=== PATIENT | male | born 1995 | race American Indian/Alaskan Native ===

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

== ENCOUNTER 2017-12-10 15:38 | Emergency (ER) | payer MEDICAID, OTHER ==
[2017-12-10] MEDS ORDERED: Sodium Chloride 0.9% 1,000 ML IV STA (16:02)
--- NOTE | 2017-12-10 16:14 | ED PDOC ---
HPI: Abdomen Time Seen by Provider: 12/10/17 15:55 Chief Complaint (Nursing): Abdominal Pain Chief Complaint (Provider): abdominal pain History Per: Patient History/Exam Limitations: no limitations Exacerbating Factors: None Alleviating Factors: None Last Bowel Movement: Today Additional Complaint(s): 22yo male c/o abdominal discomfort since this morning, crampy, upper abdomen associated w nausea and one episode vomiting with specks of blood in it. Denies melena, weakness, syncope, or diarrhea. Prior records reveal several ED visits for same, states he saw a GI doctor in [place] within last month but he doesnt recall the name- states he dropped off a stool sample and told everything was ok, taking no medications daily. Denies drug or alcohol use recently. Denies weight loss, rash, cough or chest pain. Past Medical History Reviewed: Historical Data, Nursing Documentation, Vital Signs Vital Signs: Last Vital Signs Temp 98 F 12/10/17 19:03 Pulse 70 12/10/17 19:03 Resp 20 12/10/17 19:03 BP 120/70 12/10/17 19:03 Pulse Ox 98 12/10/17 19:03 - Medical History PMH: No Chronic Diseases - Surgical History Surgical History: No Surg Hx - Family History Family History: States: Unknown Family Hx - Social History Current smoker - smoking cessation education provided: No Drugs: Denies - Immunization History Hx Tetanus Toxoid Vaccination: No Hx Influenza Vaccination: No Hx Pneumococcal Vaccination: No - Home Medications Home Medications: Ambulatory Orders Medication Instructions Recorded Famotidine [Pepcid] 20 mg PO HS #30 tab 11/10/17 Ranitidine HCl [Zantac] 150 mg PO BID #30 tablet 12/10/17 - Allergies Allergies/Adverse Reactions: Allergies Allergy/AdvReac Type Severity Reaction Status Date / Time No Known Allergies Allergy Verified 11/10/17 21:31 Review of Systems ROS Statement: Except As Marked, All Systems Reviewed And Found Negative Constitutional: Negative for: Fever, Chills, Weight loss Respiratory: Negative for: Cough Gastrointestinal: Positive for: Nausea, Vomiting, Abdominal Pain, Hematemesis. Negative for: Diarrhea, Constipation, Melena, Hematochezia, Rectal Pain Genitourinary Male: Negative for: Dysuria Musculoskeletal: Negative for: Neck Pain, Back Pain Skin: Negative for: Rash, Lesions, Jaundice Neurological: Negative for: Weakness, Confusion, Seizures, Dizziness Psych: Negative for: Depression Physical Exam - Reviewed Nursing Documentation Reviewed: Yes Vital Signs Reviewed: Yes - Physical Exam Appears: Positive for: Well, Non-toxic, No Acute Distress Head Exam: Positive for: ATRAUMATIC, NORMAL INSPECTION, NORMOCEPHALIC Skin: Positive for: Normal Color, Warm, DRY Eye Exam: Positive for: EOMI, Normal appearance, PERRL ENT: Positive for: Normal ENT Inspection Neck: Positive for: Normal, Painless ROM Cardiovascular/Chest: Positive for: Regular Rate, Rhythm Respiratory: Positive for: Normal Breath Sounds, Other (tattoos to chest) Gastrointestinal/Abdominal: Positive for: Soft. Negative for: Tenderness Back: Positive for: Normal Inspection Extremity: Positive for: Normal ROM Neurologic/Psych: Positive for: Alert, Oriented. Negative for: Motor/Sensory Deficits - Laboratory Results Result Diagrams: 12/10/17 16:05 12/10/17 16:05 - ECG O2 Sat by Pulse Oximetry: 99 Medical Decision Making Medical Decision Making: prior charts reviewed, Rx pepcid but patient not taking. Prior admitted to frequent marijuana use but today denies. Will check bloodwork and US abdomen given no imaging yet. labs and US report reviewed improved on re-eval in ED, abdomen was nontender. Given recurrence of symptoms needs to see GI, explained to patient and family member. Disposition - Clinical Impression Clinical Impression: Abdominal pain - Patient ED Disposition Is Patient to be Admitted: No - Disposition Referrals: Patricio Mata MD, PhD [Staff Provider] - Disposition: Routine/Home Disposition Time: 18:55 Condition: STABLE Additional Instructions: Followup with GI doctor for definitive care. Return to ER for any further vomiting of blood, dark/tarry stools, pain, fever, weakness or any concern. Take medications as directed. Prescriptions: Ranitidine HCl [Zantac] 150 mg PO BID #30 tablet Instructions: Gastrointestinal Bleeding, Acute Abdomen (Belly Pain), Adult (DC) , Stomach Ache and Stomach Upset Forms: [employer] (Ecuadorean), [facility] ED School/Work Excuse
[2017-12-10 16:23] LABS: BASO % 0.4 % (0.0-2.0); EOS # 0.1 K/uL (0.0-0.7); EOS % 1.4 % (0.0-4.0); HEMOGLOBIN 14.7 g/dL (12.0-18.0); LYMPH # 2.4 K/uL (1.0-4.3); LYMPH % 48.2 % (20.0-40.0); MEAN CELL VOLUME 77.4 fl (80.0-94.0); MEAN CORPUSCULAR HEMOGLOBIN 26.3 pg (27.0-31.0); MEAN PLATELET VOLUME 8.2 fl (7.2-11.7); MONO # 0.7 K/uL (0.0-0.8); MONO % 14.8 % (0.0-10.0); NEUT # 1.7 K/uL (1.8-7.0); NEUT % 35.2 % (50.0-75.0); NRBC % 0.1 % (0.0-0.0); RBC 5.6 Mil/uL (4.40-5.90); WHITE BLOOD COUNT 4.9 K/uL (4.8-10.8)
[2017-12-10 16:31] LABS: ALB/GLOB RATIO 1.2 (1.0-2.1); ALT/SGPT 38 U/L (21-72); AST/SGOT 34 U/L (17-59); BLOOD UREA NITROGEN 16 mg/dl (9-20); CALCIUM 8.9 mg/dL (8.4-10.2); GFR AFRICAN-AMERICAN > 60; GFR NON-AFRICAN AMERICAN > 60; LIPASE 78 U/L (23-300)
[2017-12-10 16:39] LABS: BARBITURATES, UR NEGATIVE (NEGATIVE); BENZODIAZEPINES, UR NEGATIVE (NEGATIVE); OPIATES, UR NEGATIVE (NEGATIVE); PHENCYCLIDINE, UR NEGATIVE (NEGATIVE)
[2017-12-10 17:41] LABS: SQUAMOUS EPITHIAL < 1 /hpf (0-5); URINE BACTERIA RARE (<OCC); URINE BILIRUBIN NEGATIVE (NEGATIVE); URINE BLOOD NEGATIVE (NEGATIVE); URINE CLARITY SLIGHTY-CLOUDY (Clear); URINE COLOR YELLOW (YELLOW); URINE GLUCOSE (UA) NEG (Normal); URINE LEUKOCYTE ESTERASE NEG Leu/uL (Negative); URINE PROTEIN 30 mg/dL (NEGATIVE)
--- NOTE | 2017-12-10 17:50 | US ---
HISTORY: upper abdominal pain; GB/Aorta/pancreas COMPARISON: None. TECHNIQUE: Sonographic evaluation of the right upper quadrant of the abdomen. FINDINGS: LIVER: Measures 14.6 cm in length. Patent portal vein. Portal venous flow: Hepatopetal. Unremarkable echogenicity of the liver parenchyma. No mass. No intrahepatic bile duct dilatation. GALLBLADDER: Unremarkable. No gallstones. COMMON BILE DUCT: Measures 3.1 mm. No stones. No dilatation. PANCREAS: Unremarkable as visualized. No mass. No ductal dilatation. RIGHT KIDNEY: Measures 5.4 x 9.2 cm in length. Normal echogenicity. No calculus, mass, or hydronephrosis. AORTA: No aneurysmal dilatation. IVC: Unremarkable. OTHER FINDINGS: None . IMPRESSION: No significant or acute findings to account for/ related to the clinical presentation.
[2017-12-10 19:05] VITALS: BP 120/70; PULSE 70; RESP 20; TEMP 98
[2017-12-16 12:52] VITALS: O2SAT 99
== END 2017-12-10 19:05 | disposition home or self-care (01) ==
LOC: H.ER 15:38
DX: R10.9 Unspecified abdominal pain (principal)
CPT/HCPCS: 76705; 80053; 80324; 80345; 80346; 80349; 80353; 80358; 80361; 81003; 83690; 83992; 85025; 96360; 99283; J7040

== ENCOUNTER 2018-11-13 13:00 | Emergency (ER) | payer OTHER ==
[2018-11-13 13:31] VITALS: O2SAT 100
[2018-11-13 13:47] LABS: URINE BILIRUBIN NEGATIVE (NEGATIVE); URINE BLOOD NEGATIVE (NEGATIVE); URINE CLARITY CLEAR (Clear); URINE COLOR STRAW (YELLOW); URINE GLUCOSE (UA) NEG (NEGATIVE); URINE LEUKOCYTE ESTERASE NEG Leu/uL (Negative); URINE PROTEIN NEGATIVE (NEGATIVE); URINE UROBILINOGEN 0.2-1.0 mg/dL (0.2-1.0)
[2018-11-13 14:18] LABS: EOS % 1.2 % (0.0-4.0); HEMOGLOBIN 15.1 g/dL (12.0-18.0); LYMPH % 55.5 % (20.0-40.0); MEAN CELL VOLUME 79.2 fl (80.0-94.0); MEAN CORPUSCULAR HEMOGLOBIN 26.5 pg (27.0-31.0); MEAN CORPUSCULAR HGB CONC 33.4 g/dL (33.0-37.0); MEAN PLATELET VOLUME 8.1 fl (7.2-11.7); MONO # 0.4 K/uL (0.0-0.8); MONO % 12.6 % (0.0-10.0); NEUT % 29.7 % (50.0-75.0); NRBC % 0.4 % (0.0-0.0); RBC 5.71 Mil/uL (4.40-5.90); RED CELL DISTRIBUTION WIDTH 13.4 % (11.5-14.5); WHITE BLOOD COUNT 3.5 K/uL (4.8-10.8)
[2018-11-13 14:30] LABS: BLOOD UREA NITROGEN 18 mg/dl (9-20); CALCIUM 9.8 mg/dL (8.4-10.2); GFR NON-AFRICAN AMERICAN > 60
--- NOTE | 2018-11-13 16:11 | US ---
Date of service: 11/13/2018 HISTORY: left testicular sudden pain TECHNIQUE: Realtime sonography through the scrotum with color and doppler flow. COMPARISON: None Available. FINDINGS: RIGHT TESTICLE: Measures 4.4 x 2.7 x 2.2 cm. Normal echotexture and flow. RIGHT EPIDIDYMIS: Epididymal head measures 1.3 x 1.1 x 1.5 cm. Grossly unremarkable appearance with normal flow. There is a cyst- spermatocele measuring 1.0 x 0.8 x 0.7 cm LEFT TESTICLE: Measures 4.4 x 2.8 x 2.2 cm. Normal echotexture and flow. LEFT EPIDIDYMIS: Epididymal head measures 1.4 x 0.8 x 1.0 cm. Grossly unremarkable appearance. Slight increased flow compared to the right side; rule out mild epididymitis; HYDROCELE: None. VARICOCELE: None. OTHER FINDINGS: None. IMPRESSION: No evidence of torsion. Bilateral hydroceles.. Right epididymal cyst likely representing spermatocele Slight increased flow left epididymis compared to the right side; rule out mild epididymitis;
[2018-11-13] MEDS ORDERED: cefTRIAXone (Rocephin) 250 mg Inj IM STA (16:17)
--- NOTE | 2018-11-13 16:33 | ED PDOC ---
HPI: Abdomen Time Seen by Provider: 11/13/18 13:20 Chief Complaint (Nursing): Abdominal Pain Chief Complaint (Provider): Abdominal Pain, Testicular Pain History Per: Patient History/Exam Limitations: no limitations Onset/Duration Of Symptoms: Waxing/Waning (since 1000 this morning) Current Symptoms Are (Timing): Still Present Additional Complaint(s): 23 year old male presents to the ED for evaluation of waxing and waning sharp lower abdominal pain since 1000 this morning. Patient notes the pain was initially so sharp rated 10/10 that he could not walk, and when he went to urinate he felt some left testicular pain which still remains. Denies dysuria and hematuria. Currently, he reports the abdominal pain is a 8/10 and has never had this pain before in his life. Additionally, denies history of abdominal surgery, nausea, vomiting, and back pain. Pt reports he is sexually active, does not use condoms, denies discharge from urethra or concern for STDs at this time PMD: in [place] Past Medical History Reviewed: Historical Data, Nursing Documentation, Vital Signs Vital Signs: Last Vital Signs Temp 97.2 F L 11/13/18 13:06 Pulse 76 11/13/18 13:06 Resp 16 11/13/18 13:06 BP 113/65 11/13/18 13:06 Pulse Ox 100 11/13/18 13:06 - Medical History PMH: No Chronic Diseases - Surgical History Surgical History: No Surg Hx - Family History Family History: States: Unknown Family Hx - Social History Current smoker - smoking cessation education provided: No Alcohol: None Drugs: Cannabis (daily) - Immunization History Hx Tetanus Toxoid Vaccination: No Hx Influenza Vaccination: No Hx Pneumococcal Vaccination: No - Home Medications Home Medications: Ambulatory Orders Medication Instructions Recorded Famotidine [Pepcid] 20 mg PO HS #30 tab 11/10/17 Ranitidine HCl [Zantac] 150 mg PO BID #30 tablet 12/10/17 Doxycycline Hyclate 100 mg PO BID 10 Days #20 capsule 11/13/18 Naproxen 500 mg PO BID PRN #20 tab 11/13/18 - Allergies Allergies/Adverse Reactions: Allergies Allergy/AdvReac Type Severity Reaction Status Date / Time No Known Allergies Allergy Verified 11/13/18 13:06 Review of Systems ROS Statement: Except As Marked, All Systems Reviewed And Found Negative Gastrointestinal: Positive for: Abdominal Pain (lower sharp). Negative for: Nausea, Vomiting Genitourinary Male: Positive for: Other (left testicular pain). Negative for: Dysuria, Hematuria Musculoskeletal: Negative for: Back Pain Physical Exam - Reviewed Nursing Documentation Reviewed: Yes Vital Signs Reviewed: Yes - Physical Exam Comments: GENERAL APPEARANCE: Patient is awake, alert, oriented x 3, in no obvious discomfort. Patient is well appearing, thin, and tall. SKIN: Warm, dry; (-) cyanosis. EYES: (-) conjunctival pallor, (-) scleral icterus. ENMT: Mucous membranes moist. NECK: (-) tenderness, (-) stiffness, (-) lymphadenopathy. CHEST AND RESPIRATORY: (-) rales, (-) rhonchi, (-) wheezes; breath sounds equal bilaterally. HEART AND CARDIOVASCULAR: (-) irregularity; (-) murmur, (-) gallop. ABDOMEN AND GI: (-) distention. Bowel sounds active and normal; (+) very mild LLQ tenderness. (-) guarding, (-) rebound, (-) palpable masses, (-) organomegaly, (-) CVA tenderness. GENITOURINARY: Pt is circumcised. Left testicle: (+) tenderness, (-) swelling, (-) erythema. No rashes noted to genital region. EXTREMITIES: (-) deformity, (-) edema, (+) distal pulses. NEURO AND PSYCH: Mental status as above; (-) focal findings. - Laboratory Results Result Diagrams: 11/13/18 14:15 11/13/18 14:15 Lab Results: Urine Color Straw (YELLOW) 11/13/18 13:40 Urine Clarity Clear (Clear) 11/13/18 13:40 Urine pH 7.0 (5.0-8.0) 11/13/18 13:40 Ur Specific [place] 1.010 (1.003-1.030) 11/13/18 13:40 Urine Protein Negative mg/dL (NEGATIVE) 11/13/18 13:40 Urine Glucose (UA) Neg mg/dL (NEGATIVE) 11/13/18 13:40 Urine Ketones Negative mg/dL (NEGATIVE) 11/13/18 13:40 Urine Blood Negative (NEGATIVE) 11/13/18 13:40 Urine Nitrate Negative (NEGATIVE) 11/13/18 13:40 Urine Bilirubin Negative (NEGATIVE) 11/13/18 13:40 Urine Urobilinogen 0.2-1.0 mg/dL (0.2-1.0) 11/13/18 13:40 Ur Leukocyte Esterase Neg Cj/uL (Negative) 11/13/18 13:40 Urine RBC (Auto) 1 /hpf (0-3) 11/13/18 13:40 Urine Microscopic WBC < 1 /hpf (0-5) 11/13/18 13:40 - ECG O2 Sat by Pulse Oximetry: 100 (RA) Pulse Ox Interpretation: Normal Medical Decision Making Medical Decision Making: Time: 1323 Impression: lower abdominal pain, testicular pain Initial Plan: --BMP --CBC with differential --Chlamydia/Gc RNA, TMA --Toradol 30mg IVP --Urine culture --Urinalysis --US testes duplex --Reevaluation 1608 US FINDINGS: RIGHT TESTICLE: Measures 4.4 x 2.7 x 2.2 cm. Normal echotexture and flow. RIGHT EPIDIDYMIS: Epididymal head measures 1.3 x 1.1 x 1.5 cm. Grossly unremarkable appearance with normal flow. There is a cyst- spermatocele measuring 1.0 x 0.8 x 0.7 cm LEFT TESTICLE: Measures 4.4 x 2.8 x 2.2 cm. Normal echotexture and flow. LEFT EPIDIDYMIS: Epididymal head measures 1.4 x 0.8 x 1.0 cm. Grossly unremarkable appearance. Slight increased flow compared to the right side; rule out mild epididymitis; HYDROCELE: None. VARICOCELE: None. OTHER FINDINGS: None. IMPRESSION: No evidence of torsion. Bilateral hydroceles.. Right epididymal cyst likely representing spermatocele Slight increased flow left epididymis compared to the right side; rule out mild epididymitis 1617 Rocephin ordered. and will give Rx for Doxcycline Discussed results, diagnosis, treatment, return precautions and f/u with pt who is understanding, in agreement and stable for dc 1625 Patient stable for discharge with return parameters discussed. All questions answered at this time and patient verbalized agreement of plan and at home treatment. Scribe Attestation: Documented by Reny Nava, acting as a scribe for Shady Fernández PA-C. Provider Scribe Attestation: All medical record entries made by the Scribe were at my direction and personally dictated by me. I have reviewed the chart and agree that the record accurately reflects my personal performance of the history, physical exam, medic al decision making, and the department course for this patient. I have also personally directed, reviewed, and agree with the discharge instructions and disposition. Disposition - Clinical Impression Clinical Impression: Epididymitis - Patient ED Disposition Is Patient to be Admitted: No Counseled Patient/Family Regarding: Studies Performed, Diagnosis, Need For F ollowup, Rx Given - Disposition Referrals: your, doctor [Other] at [facility] [Outside] Disposition: Routine/Home Disposition Time: 16:25 Condition: STABLE Additional Instructions: Return to ED for new or worsening symptoms, fever >100.4, increasing pain, blood in urine. Follow up with your primary care doctor in 2-3 days. Take medications as prescribed Prescriptions: Doxycycline Hyclate 100 mg PO BID 10 Days #20 capsule Naproxen 500 mg PO BID PRN #20 tab PRN Reason: Pain, Moderate (4-7) Instructions: Epididymitis (DC) Forms: [employer] (Spanish), [facility] ED School/Work Excuse Print Language: UPPER SORBIAN - POA Present On Arrival: None
[2018-11-13] MEDS ORDERED: cefTRIAXone (Rocephin) 250 mg Inj ONE (16:41)
[2018-11-13] MEDS ORDERED: Sterile Water 10 ML IV ONE (16:42)
[2018-11-13 17:16] VITALS: BP 122/70; PULSE 78; RESP 18; TEMP 98
== END 2018-11-13 17:15 | disposition home or self-care (01) ==
LOC: H.ER 13:00
DX: N45.1 Epididymitis (principal); N43.3 Hydrocele, unspecified
CPT/HCPCS: 80048; 81003; 85025; 87086; 87491; 87591; 93975; 96372; 96374; 99282; J0696; J1885

== ENCOUNTER 2018-12-29 14:09 | Emergency (ER) | payer OTHER ==
[2018-12-29 14:19] VITALS: RESP 19; TEMP 98.1; O2SAT 100
--- NOTE | 2018-12-29 15:09 | ED PDOC ---
HPI: General Adult Time Seen by Provider: 12/29/18 14:39 Chief Complaint (Nursing): Groin Pain Chief Complaint (Provider): Groin Pain History Per: Patient History/Exam Limitations: no limitations Onset/Duration Of Symptoms: Persistent Additional Complaint(s): 23 y/o male presents to the ED complaining of swelling on the left inguinal region. Patient states he "popped it" with discharge and persistent swelling. He reports he is in pain and it radiated to his left testicle. Patient denies fever, chills, or any dysuria. PMD: none provided Past Medical History Reviewed: Historical Data, Nursing Documentation, Vital Signs Vital Signs: Last Vital Signs Temp 98.1 F 12/29/18 14:16 Pulse 90 12/29/18 14:16 Resp 19 12/29/18 14:16 BP 105/59 L 12/29/18 14:16 Pulse Ox 100 12/29/18 14:16 Primary Care Provider: Non [facility] Provider, - Family History Family History: States: Unknown Family Hx - Immunization History Hx Tetanus Toxoid Vaccination: No Hx Influenza Vaccination: No Hx Pneumococcal Vaccination: No - Home Medications Home Medications: Ambulatory Orders Medication Instructions Recorded Famotidine [Pepcid] 20 mg PO HS #30 tab 11/10/17 Ranitidine HCl [Zantac] 150 mg PO BID #30 tablet 12/10/17 Doxycycline Hyclate 100 mg PO BID 10 Days #20 capsule 11/13/18 Naproxen 500 mg PO BID PRN #20 tab 11/13/18 Cephalexin [Keflex] 500 mg PO TID #21 capsule 12/29/18 Ibuprofen [Motrin] 600 mg PO Q8 PRN #21 tab 12/29/18 Sulfamethoxazole/Trimethoprim 1 tab PO BID #14 tab 12/29/18 [Bactrim DS 800 mg-160 mg] - Allergies Allergies/Adverse Reactions: Allergies Allergy/AdvReac Type Severity Reaction Status Date / Time No Known Allergies Allergy Verified 11/13/18 13:06 Review of Systems ROS Statement: Except As Marked, All Systems Reviewed And Found Negative Constitutional: Negative for: Fever, Chills Genitourinary Male: Positive for: Other ((+) left inguinal region pain that radiates to left testicular. ). Negative for: Dysuria Physical Exam - Reviewed Nursing Documentation Reviewed: Yes Vital Signs Reviewed: Yes - Physical Exam Appears: Positive for: Well, Non-toxic, No Acute Distress Head Exam: Positive for: ATRAUMATIC, NORMAL INSPECTION, NORMOCEPHALIC Skin: Positive for: Normal Color, Warm, Dry Eye Exam: Positive for: EOMI, Normal appearance, PERRL ENT: Positive for: Normal ENT Inspection Neck: Positive for: Normal, Painless ROM, Supple Cardiovascular/Chest: Positive for: Regular Rate, Rhythm. Negative for: Murmur Respiratory: Positive for: Normal Breath Sounds. Negative for: Wheezing Gastrointestinal/Abdominal: Positive for: Normal Exam, Soft. Negative for: Tend erness Male Genital Exam: Positive for: other ((+) Left inguinal fold. Enlarged lymph nodes in region. 2cm inherited ascus. No infection.). Negative for: erythema, testicular tenderness (L) Back: Positive for: Normal Inspection. Negative for: L CVA Tenderness, R CVA Tenderness Extremity: Positive for: Normal ROM Neurological/Psych: Positive for: Awake, Alert, Normal Tone, Oriented (x3). Negative for: Motor/Sensory Deficits - ECG O2 Sat by Pulse Oximetry: 100 - Progress ED Course And Treament: IMPRESSION: Negative study for epididymitis, orchitis, torsion or testicular mass Left inguinal mass less than 1 cm possible lymph node. Medical Decision Making Medical Decision Making: Time:1500 Impression: Plan: -Urinalysis -Chlamydia -Urine culture -Testicular Ultrasound -Testes Duplex complete US Scribe Attestation: Documented by Renée Cano, acting as a scribe for Timmy Davidson. Provider Scribe Attestation: All medical record entries made by the Scribe were at my direction and personally dictated by me. I have reviewed the chart and agree that the record accurately reflects my personal performance of the history, physical exam, medical decision making, and the department course for this patient. I have also personally directed, reviewed, and agree with the discharge instructions and disposition. Disposition - Clinical Impression Clinical Impression: Abscess, Lymph nodes enlarged - Patient ED Disposition Is Patient to be Admitted: No - Disposition Referrals: [facility] [Outside] Disposition: Routine/Home Disposition Time: 15:49 Condition: FAIR Additional Instructions: FOLLOW UP IN 48 HOURS Prescriptions: Cephalexin [Keflex] 500 mg PO TID #21 capsule Ibuprofen [Motrin] 600 mg PO Q8 PRN #21 tab PRN Reason: Pain, Moderate (4-7) Sulfamethoxazole/Trimethoprim [Bactrim DS 800 mg-160 mg] 1 tab PO BID #14 tab Instructions: Skin Abscess, Lymphadenitis Forms: [facility] ED School/Work Excuse
[2018-12-29 15:21] LABS: URINE BILIRUBIN NEGATIVE (NEGATIVE); URINE BLOOD NEGATIVE (NEGATIVE); URINE CLARITY SLIGHTY-CLOUDY (Clear); URINE COLOR STRAW (YELLOW); URINE GLUCOSE (UA) NEG (NEGATIVE); URINE LEUKOCYTE ESTERASE NEG Leu/uL (Negative); URINE PROTEIN NEGATIVE (NEGATIVE); URINE UROBILINOGEN 0.2-1.0 mg/dL (0.2-1.0)
--- NOTE | 2018-12-29 15:49 | US ---
Date of service: 12/29/2018 HISTORY: LEFT TESTICULAR PAIN TECHNIQUE: Realtime sonography through the scrotum with color and doppler flow. COMPARISON: 11/13/2018. Testicular ultrasound. FINDINGS: RIGHT TESTICLE: Measures 2.6 x 2 x 4.5 cm. Normal echotexture and flow. RIGHT EPIDIDYMIS: Epididymal head measures 1.1 x 1.3 cm. Simple epididymal cyst 8 x 11 mm. LEFT TESTICLE: Measures 2 x 2.5 x 4.2 cm. Normal echotexture and flow. LEFT EPIDIDYMIS: Epididymal head measures 0.7 x 0.7 x 0.8 cm. Grossly unremarkable appearance with normal flow. HYDROCELE: Small, bilaterally symmetrical. VARICOCELE: None. OTHER FINDINGS: Small inguinal mass, possible lymph node 3 x 6 mm. IMPRESSION: Negative study for epididymitis, orchitis, torsion or testicular mass Left inguinal mass less than 1 cm possible lymph node.
[2018-12-29 16:11] VITALS: BP 108/60; PULSE 86
== END 2018-12-29 15:52 | disposition home or self-care (01) ==
LOC: H.ER 14:09
DX: R59.9 Enlarged lymph nodes, unspecified (principal); L02.91 Cutaneous abscess, unspecified